=== PATIENT | female | born 1970 ===

== ENCOUNTER 2017-09-20 20:29 | Observation (INO) | payer OTHER ==
[2017-09-20 22:20] LABS: BASO # 0.1 K/uL (0.0-0.2); BASO % 0.4 % (0.0-2.0); EOS # 0.1 K/uL (0.0-0.7); EOS % 0.5 % (0.0-4.0); HEMOGLOBIN 13.7 g/dL (12.0-16.0); LYMPH # 2.5 K/uL (1.0-4.3); LYMPH % 19.8 % (20.0-40.0); MEAN CELL VOLUME 89.6 fl (81.0-99.0); MEAN CORPUSCULAR HEMOGLOBIN 30.5 pg (27.0-31.0); MEAN CORPUSCULAR HGB CONC 34.1 g/dL (33.0-37.0); MEAN PLATELET VOLUME 9.7 fl (7.2-11.7); MONO # 0.8 K/uL (0.0-0.8); MONO % 6.3 % (0.0-10.0); NEUT # 9.2 K/uL (1.8-7.0); NRBC % 0.1 % (0.0-0.0); RBC 4.49 Mil/uL (3.80-5.20); RED CELL DISTRIBUTION WIDTH 12.8 % (11.5-14.5); WHITE BLOOD COUNT 12.6 K/uL (4.8-10.8)
[2017-09-20] MEDS ORDERED: Iohexol 240 (50 ml) PO ONE (22:24)
[2017-09-20 22:40] LABS: ALB/GLOB RATIO 1.1 (1.0-2.1); ALBUMIN 3.8 g/dL (3.5-5.0); ALT/SGPT 33 U/L (9-52); AST/SGOT 17 U/L (14-36); BLOOD UREA NITROGEN 9 mg/dl (7-17); CALCIUM 8.7 mg/dL (8.4-10.2); GFR AFRICAN-AMERICAN > 60; GFR NON-AFRICAN AMERICAN > 60
[2017-09-20] MEDS ORDERED: Iohexol 240 (50 ml) ONE (23:01)
[2017-09-20] MEDS ORDERED: Morphine 4 MG/ML VIAL ONE (23:06)
[2017-09-21] MEDS ORDERED: Morphine 4 MG/ML VIAL IV ONE ×2 (00:11→03:48)
[2017-09-21] MEDS ORDERED: Iohexol 300 100 ML IJ ONE (00:28)
[2017-09-21] MEDS ORDERED: Sodium Chloride 0.9% 100 ML ONE (00:28)
--- NOTE | 2017-09-21 01:05 | CT ---
EXAM: CT Abdomen and Pelvis With Intravenous Contrast CLINICAL HISTORY: 47 years old, female; Pain; Abdominal pain; Generalized; Prior surgery; Surgery date: 6+ months; Surgery type: Appendectomy. ; Additional info: Diffuse abd pain TECHNIQUE: Axial computed tomography images of the abdomen and pelvis with intravenous contrast. All CT scans at this facility use one or more dose reduction techniques, viz.: automated exposure control; ma/kV adjustment per patient size (including targeted exams where dose is matched to indication; i.e. head); or iterative reconstruction technique. Coronal and sagittal reformatted images were created and reviewed. CONTRAST: 90 mL of [id number] administered intravenously. COMPARISON: No relevant prior studies available. FINDINGS: Lung bases: Minimal atelectasis/scarring. ABDOMEN: Liver: Unremarkable. No mass. Gallbladder and bile ducts: No calcified stones. No ductal dilation. Pancreas: No ductal dilation. No mass. Spleen: No splenomegaly. Adrenals: No mass. Kidneys and ureters: No mass. No hydronephrosis. Stomach and bowel: Scattered diverticula within colon. Moderate to severe mural thickening of distal transverse, descending colon. Mild stranding within adjacent fat. No obstruction. Appendix: Appendectomy. PELVIS: Bladder: Unremarkable. Reproductive: 2.0 x 1.5 x 1.9 cm peripherally enhancing hypodensity with crenulated margins within RIGHT ovary. ABDOMEN and PELVIS: Intraperitoneal space: Trace free fluid within pelvis. No free air. Bones/joints: Early degenerative changes of spine. No acute fracture. Soft tissues: Tiny umbilical hernia containing fat. Vasculature: Unremarkable. No aneurysm. Lymph nodes: No pathologically enlarged lymph nodes. IMPRESSION: 1. Colitis, nonspecific. Consider inflammatory, infectious, or ischemic etiologies. 2. Involuting or ruptured RIGHT ovarian follicle/cyst. 3. Incidental/non-acute findings are described above.
--- NOTE | 2017-09-21 01:11 | ED PDOC ---
HPI: Abdomen Time Seen by Provider: 09/20/17 20:35 Chief Complaint (Nursing): GI Problem Chief Complaint (Provider): GI problem History Per: Patient History/Exam Limitations: no limitations Onset/Duration Of Symptoms: Days (x 2) Current Symptoms Are (Timing): Still Present Quality Of Discomfort: "Pain" Additional Complaint(s): 47 year old female presents to the ED complaining of generalized abdominal pain for the last two days and 1 episode of blood stool last night. Patient denies fever, vomiting and diarrhea. PMD: none provided Past Medical History Reviewed: Historical Data, Nursing Documentation, Vital Signs Vital Signs: Last Vital Signs Temp 98.5 F 09/20/17 20:38 Pulse 77 09/20/17 20:38 Resp 16 09/20/17 20:38 BP 133/86 09/20/17 20:38 Pulse Ox 100 09/21/17 03:56 - Medical History PMH: No Chronic Diseases - Surgical History Surgical History: No Surg Hx - Family History Family History: States: Unknown Family Hx - Social History Current smoker - smoking cessation education provided: No Alcohol: None Drugs: Denies - Home Medications Home Medications: Ambulatory Orders Medication Instructions Recorded No Known Home Med 09/21/17 - Allergies Allergies/Adverse Reactions: Allergies Allergy/AdvReac Type Severity Reaction Status Date / Time No Known Allergies Allergy Verified 09/20/17 20:41 Review of Systems ROS Statement: Except As Marked, All Systems Reviewed And Found Negative Constitutional: Negative for: Fever Gastrointestinal: Positive for: Abdominal Pain, Hematochezia. Negative for: Vomiting, Diarrhea Physical Exam - Reviewed Nursing Documentation Reviewed: Yes Vital Signs Reviewed: Yes - Physical Exam Appears: Positive for: No Acute Distress Head Exam: Positive for: ATRAUMATIC, NORMOCEPHALIC Skin: Positive for: Normal Color, Warm, DRY Eye Exam: Positive for: EOMI, Normal appearance, PERRL Neck: Positive for: Normal, Painless ROM Cardiovascular/Chest: Positive for: Regular Rate, Rhythm. Negative for: Murmur Respiratory: Positive for: Normal Breath Sounds. Negative for: Respiratory Distress Gastrointestinal/Abdominal: Positive for: Normal Exam, Tenderness (diffuse) Back: Positive for: Normal Inspection Extremity: Positive for: Normal ROM. Negative for: Deformity Neurologic/Psych: Positive for: Alert, Oriented. Negative for: Motor/Sensory Deficits - Laboratory Results Result Diagrams: 09/20/17 22:15 09/20/17 22:15 - ECG O2 Sat by Pulse Oximetry: 100 (RA) Pulse Ox Interpretation: Normal Medical Decision Making Medical Decision Making: Time: 20:50 Initial Plan: abdominal pain rule out intraabdominal process, diverticutlitis, appendicitis --blood type and screen --Ct abd pelvis --CMP --Lipase --CBC with differentials --Morphine 2 mg IV --Omnipaque 240 50 ml PO --Pepcid 20 mg IVP --Zofran ODT 4 mg PO Time: 01:07 CT Abdomen Pelvis FINDINGS: Lung bases: Minimal atelectasis/scarring. ABDOMEN: Liver: Unremarkable. No mass. Gallbladder and bile ducts: No calcified stones. No ductal dilation. Pancreas: No ductal dilation. No mass. Spleen: No splenomegaly. Adrenals: No mass. Kidneys and ureters: No mass. No hydronephrosis. Stomach and bowel: Scattered diverticula within colon. Moderate to severe mural thickening of distal transverse, descending colon. Mild stranding within adjacent fat. No obstruction. Appendix: Appendectomy. PELVIS: Bladder: Unremarkable. Reproductive: 2.0 x 1.5 x 1.9 cm peripherally enhancing hypodensity with crenulated margins within RIGHT ovary. ABDOMEN and PELVIS: Intraperitoneal space: Trace free fluid within pelvis. No free air. Bones/joints: Early degenerative changes of spine. No acute fracture. Soft tissues: Tiny umbilical hernia containing fat. Vasculature: Unremarkable. No aneurysm. Lymph nodes: No pathologically enlarged lymph nodes. IMPRESSION: 1. Colitis, nonspecific. Consider inflammatory, infectious, or ischemic etiologies. 2. Involuting or ruptured RIGHT ovarian follicle/cyst. 3. Incidental/non-acute findings are described above. Radiologist called and said that colitis is very severe. Time: 02:02 --ABG Panel lactate normal Time: 03:52 --guaiac stool ordered --Upon reevaluation, patient still reports pain -cipro./flagyl --Will be admitted to med/surg to Dr. Boggs. Scribe Attestation: Documented by Ivanna Parks, acting as a scribe for Tanner Serrano MD Provider Scribe Attestation: All medical record entries made by the Scribe were at my direction and personally dictated by me. I have reviewed the chart and agree that the record accurately reflects my personal performance of the history, physical exam, medical decision making, and the department course for this patient. I have also personally directed, reviewed, and agree with the discharge instructions and disposition. Disposition - Clinical Impression Clinical Impression: Colitis - Patient ED Disposition Is Patient to be Admitted: Yes Counseled Patient/Family Regarding: Studies Performed, Diagnosis - Disposition Disposition Time: 03:00 Condition: STABLE Forms: [employer] (Eth[place]ian) - Pt Status Changed To: Hospital Disposition Of: Inpatient - Admit Certification Admit to Inpatient:: After my assessment, the patient will require hospitalization for at least two midnights. This is because of the severity of symptoms shown, intensity of services needed, and/or the medical risk in this patient being treated as an outpatient.
[2017-09-21 02:26] LABS: ABG ALLEN TEST YES; ARTERIAL BLOOD GAS HCO3 25.7 mmol/L (21-28); ARTERIAL BLOOD GAS O2 SAT 99.6 % (95-98); ARTERIAL BLOOD GAS PCO2 37 mm/Hg (35-45); ARTERIAL BLOOD GAS PH 7.44 (7.35-7.45); ARTERIAL BLOOD GAS PO2 99 mm/Hg (80-100); ARTERIAL BLOOD GAS TCO2 26.2 mmol/L (22-28)
[2017-09-21] MEDS ORDERED: Sodium Chloride 0.9% 1,000 ML IV STA (03:51)
[2017-09-21] MEDS ORDERED: Morphine 4 MG/ML VIAL ONE (03:56)
[2017-09-21] MEDS ORDERED: Oxycodone/Acetaminophen 5/325 mg Tab PO PRN (03:57)
[2017-09-21] MEDS ORDERED: Morphine 4 MG/ML VIAL IVP PRN (03:57)
--- NOTE | 2017-09-21 04:05 | CP.PCM.HP ---
History of Present Illness - History of Present Illness History of Present Illness: CC: abd pain, blood in stool HPI: This is a 47 y/o female with no chronic medical conditions who presents with abd pain and several episodes of blood in stool. States abd pain started about 2 days ago, but is not associated with n/v. Denies f/c. Denies dysuria. Patient without any unusual food ingestion, no unusual travel or other exposure. Never had symptoms like this in the past. ROS: 14 systems reviewed, negative other than HPI MHx/SHx: Appendectomy in the distant past Allergies: None Medications: None Family Hx: None Social Hx: Lives with family, no tobacco, no significant EtOH Present on Admission - Present on Admission Any Indicators Present on Admission: No Past Patient History - Past Social History Smoking Status: Never Smoked - PSYCHIATRIC Hx Substance Use: No - SURGICAL HISTORY Hx Surgeries: No Meds Allergies/Adverse Reactions: Allergies Allergy/AdvReac Type Severity Reaction Status Date / Time No Known Allergies Allergy Verified 09/20/17 20:41 Physical Exam - Constitutional Appears: No Acute Distress - Head Exam Head Exam: ATRAUMATIC, NORMOCEPHALIC - Eye Exam Eye Exam: EOMI, PERRL - ENT Exam ENT Exam: Mucous Membranes Moist - Neck Exam Neck exam: Positive for: Full Rom - Respiratory Exam Respiratory Exam: Clear to Auscultation Bilateral, NORMAL BREATHING PATTERN - Cardiovascular Exam Cardiovascular Exam: REGULAR RHYTHM, +S1, +S2 - GI/Abdominal Exam GI & Abdominal Exam: Normal Bowel Sounds, Soft, Tenderness - Extremities Exam Extremities exam: Positive for: full ROM, normal inspection - Neurological Exam Neurological exam: Alert, CN II-XII Intact, Oriented x3 - Psychiatric Exam Psychiatric exam: Normal Affect, Normal Mood - Skin Skin Exam: Dry, Warm Results - Vital Signs Recent Vital Signs: Last Vital Signs Temp 98.5 F 09/20/17 20:38 Pulse 77 09/20/17 20:38 Resp 16 09/20/17 20:38 BP 133/86 09/20/17 20:38 Pulse Ox 100 09/21/17 03:56 - Labs Result Diagrams: 09/20/17 22:15 09/20/17 22:15 Labs: Laboratory Results - last 24 hr 09/20/17 09/20/17 09/20/17 00:30 22:15 22:15 WBC 12.6 H RBC 4.49 Hgb 13.7 Hct 40.2 MCV 89.6 MCH 30.5 MCHC 34.1 RDW 12.8 Plt Count 213 MPV 9.7 Neut % (Auto) 73.0 Lymph % (Auto) 19.8 L Henry % (Auto) 6.3 Eos % (Auto) 0.5 Baso % (Auto) 0.4 Neut # (Auto) 9.2 H Lymph # (Auto) 2.5 Henry # (Auto) 0.8 Eos # (Auto) 0.1 Baso # (Auto) 0.1 pCO2 pO2 HCO3 ABG pH ABG Total CO2 ABG O2 Saturation ABG Base Excess Reece Test ABG Potassium A-a O2 Difference Glucose Lactate FiO2 Sodium 141 Potassium 3.8 Chloride 104 Carbon Dioxide 25 Anion Gap 16 BUN 9 Creatinine 0.5 L Est GFR ( Amer) > 60 Est GFR (Non-Af Amer) > 60 Random Glucose 88 Calcium 8.7 Total Bilirubin 0.7 AST 17 ALT 33 Alkaline Phosphatase 55 Total Protein 7.1 Albumin 3.8 Globulin 3.3 Albumin/Globulin Ratio 1.1 Lipase Arterial Blood Potassium Blood Type O POSITIVE Antibody Screen Negative BBK History Checked No verified bt 09/20/17 09/21/17 22:15 02:02 WBC RBC Hgb Hct MCV MCH MCHC RDW Plt Count MPV Neut % (Auto) Lymph % (Auto) Henry % (Auto) Eos % (Auto) Baso % (Auto) Neut # (Auto) Lymph # (Auto) Henry # (Auto) Eos # (Auto) Baso # (Auto) pCO2 37 pO2 99 HCO3 25.7 ABG pH 7.44 ABG Total CO2 26.2 ABG O2 Saturation 99.6 H ABG Base Excess 1.1 Reece Test Yes ABG Potassium 3.6 A-a O2 Difference 4.0 Glucose 95 Lactate 0.4 L FiO2 21.0 Sodium 135.0 Potassium Chloride 107.0 Carbon Dioxide Anion Gap BUN Creatinine Est GFR ( Amer) Est GFR (Non-Af Amer) Random Glucose Calcium Total Bilirubin AST ALT Alkaline Phosphatase Total Protein Albumin Globulin Albumin/Globulin Ratio Lipase 38 Arterial Blood Potassium 3.6 Blood Type Antibody Screen BBK History Checked - Imaging and Cardiology CT scan - abdomen Status: Image reviewed by me (extensive colitis), Report reviewed by me Assessment & Plan (1) Colitis Assessment and Plan: 47 y/o female with colitis + blood in stool. -NPO and IVF overnight -Start Cipro/Flagyl -f/u stool cultures/studies -Pain/nausea control -SCDs only for DVT PPx Status: Acute (2) DVT prophylaxis Status: Acute
[2017-09-21] MEDS: metroNIDAZOLE 500mg/100ml NS 100 ML IVPB SCH ×3 (04:08→16:43)
[2017-09-21] MEDS ORDERED: metroNIDAZOLE 500mg/100ml NS 100 ML IVPB ONE (04:08)
[2017-09-21] MEDS: Ciprofloxacin 400mg/200ml D5W 400 MG/200 ML BAG IVPB SCH ×2 (05:13→22:00)
[2017-09-21] MEDS ORDERED: Ciprofloxacin 400mg/200ml D5W 400 MG/200 ML BAG IVPB ONE (05:13)
[2017-09-21 12:04] LABS: HEMOGLOBIN 12.9 g/dL (12.0-16.0); MEAN CELL VOLUME 88.1 fl (81.0-99.0); MEAN CORPUSCULAR HEMOGLOBIN 31.3 pg (27.0-31.0); MEAN CORPUSCULAR HGB CONC 35.6 g/dL (33.0-37.0); RBC 4.13 Mil/uL (3.80-5.20); RED CELL DISTRIBUTION WIDTH 12.3 % (11.5-14.5); WHITE BLOOD COUNT 10.1 K/uL (4.8-10.8)
[2017-09-21 12:23] LABS: BLOOD UREA NITROGEN 6 mg/dl (7-17); CALCIUM 7.9 mg/dL (8.4-10.2); GFR AFRICAN-AMERICAN > 60; GFR NON-AFRICAN AMERICAN > 60
[2017-09-21] MEDS: Lactated Ringer's 1,000 ML IV SCH ×3 (12:32→22:11)
[2017-09-21] MEDS ORDERED: Pneumococcal 23-Valent Vaccine IM ONE (17:00)
[2017-09-21] MEDS ORDERED: Influenza Vaccine 18yr & older 0.5 ML/45 MCG SYR IM ONE (17:00)
[2017-09-22] MEDS: metroNIDAZOLE 500mg/100ml NS 100 ML IVPB SCH ×2 (01:32→10:52)
[2017-09-22] MEDS: Ciprofloxacin 400mg/200ml D5W 400 MG/200 ML BAG IVPB SCH (12:01)
--- NOTE | 2017-09-22 15:02 | CP.PCM.DIS ---
Provider - Provider Date of Admission: 09/21/17 03:52 Attending physician: Sulma Boggs MD Time Spent in preparation of Discharge (in minutes): 35 Diagnosis - Discharge Diagnosis (1) Colitis Status: Acute (2) DVT prophylaxis Status: Acute Hospital Course - Lab Results Lab Results: Most Recent Lab Values WBC 10.1 K/uL (4.8-10.8) 09/21/17 11:30 RBC 4.13 Mil/uL (3.80-5.20) 09/21/17 11:30 Hgb 12.9 g/dL (12.0-16.0) 09/21/17 11:30 Hct 36.4 % (34.0-47.0) 09/21/17 11:30 MCV 88.1 fl (81.0-99.0) 09/21/17 11:30 MCH 31.3 pg (27.0-31.0) H 09/21/17 11:30 MCHC 35.6 g/dL (33.0-37.0) 09/21/17 11:30 RDW 12.3 % (11.5-14.5) 09/21/17 11:30 Plt Count 207 K/uL (130-400) 09/21/17 11:30 MPV 9.7 fl (7.2-11.7) 09/20/17 22:15 Neut % (Auto) 73.0 % (50.0-75.0) 09/20/17 22:15 Lymph % (Auto) 19.8 % (20.0-40.0) L 09/20/17 22:15 Gonzales % (Auto) 6.3 % (0.0-10.0) 09/20/17 22:15 Eos % (Auto) 0.5 % (0.0-4.0) 09/20/17 22:15 Baso % (Auto) 0.4 % (0.0-2.0) 09/20/17 22:15 Neut # (Auto) 9.2 K/uL (1.8-7.0) H 09/20/17 22:15 Lymph # (Auto) 2.5 K/uL (1.0-4.3) 09/20/17 22:15 Gonzales # (Auto) 0.8 K/uL (0.0-0.8) 09/20/17 22:15 Eos # (Auto) 0.1 K/uL (0.0-0.7) 09/20/17 22:15 Baso # (Auto) 0.1 K/uL (0.0-0.2) 09/20/17 22:15 pCO2 37 mm/Hg (35-45) 09/21/17 02:02 pO2 99 mm/Hg (80-100) 09/21/17 02:02 HCO3 25.7 mmol/L (21-28) 09/21/17 02:02 ABG pH 7.44 (7.35-7.45) 09/21/17 02:02 ABG Total CO2 26.2 mmol/L (22-28) 09/21/17 02:02 ABG O2 Saturation 99.6 % (95-98) H 09/21/17 02:02 ABG Base Excess 1.1 mmol/L (-2.0-3.0) 09/21/17 02:02 Reece Test Yes 09/21/17 02:02 ABG Potassium 3.6 mmol/L (3.6-5.2) 09/21/17 02:02 A-a O2 Difference 4.0 mm/Hg 09/21/17 02:02 Sodium 135.0 mmol/L (132-148) 09/21/17 02:02 Chloride 107.0 mmol/L (98-107) 09/21/17 02:02 Glucose 95 mg/dL (65-105) 09/21/17 02:02 Lactate 0.4 mmol/L (0.7-2.1) L 09/21/17 02:02 FiO2 21.0 % 09/21/17 02:02 Sodium 143 mmol/l (132-148) 09/21/17 11:30 Potassium 3.9 MMOL/L (3.6-5.0) 09/21/17 11:30 Chloride 107 mmol/L (98-107) 09/21/17 11:30 Carbon Dioxide 25 mmol/L (22-30) 09/21/17 11:30 Anion Gap 15 (10-20) 09/21/17 11:30 BUN 6 mg/dl (7-17) L 09/21/17 11:30 Creatinine 0.5 mg/dl (0.7-1.2) L 09/21/17 11:30 Est GFR ( Amer) > 60 09/21/17 11:30 Est GFR (Non-Af Amer) > 60 09/21/17 11:30 Random Glucose 88 mg/dL (65-105) 09/21/17 11:30 Calcium 7.9 mg/dL (8.4-10.2) L 09/21/17 11:30 Total Bilirubin 0.7 mg/dl (0.2-1.3) 09/20/17 22:15 AST 17 U/L (14-36) 09/20/17 22:15 ALT 33 U/L (9-52) 09/20/17 22:15 Alkaline Phosphatase 55 U/L (38-126) 09/20/17 22:15 Total Protein 7.1 G/DL (6.3-8.2) 09/20/17 22:15 Albumin 3.8 g/dL (3.5-5.0) 09/20/17 22:15 Globulin 3.3 gm/dL (2.2-3.9) 09/20/17 22:15 Albumin/Globulin Ratio 1.1 (1.0-2.1) 09/20/17 22:15 Lipase 38 U/L (23-300) 09/20/17 22:15 Arterial Blood Potassium 3.6 mmol/L (3.6-5.2) 09/21/17 02:02 Blood Type O POSITIVE 09/20/17 00:30 Antibody Screen Negative 09/20/17 00:30 BBK History Checked No verified bt 09/20/17 00:30 - Hospital Course Hospital Course: 47 y/o female with no chronic medical conditions who presents with abdominal pain and several episodes blood tinge diarrhea. She had no fever, no N/V. Ct of abdomen showed Colitis changes. Pt was admitted to Med Surg and kept NPO. She was started on IV fluids and IV Cipro and Flagyl. Stool work up ordered. Since admission , patient's abdominal pain resolved, diarrhea resolved, no rectal bleeding noted. She was unable to give sny specimen for Stool work up. PO diet gradually resumed and she tolerated Regula diet without recurrence of pain nor diarrhea. Will d/c pt home and any further GI work up will be done as outpt . Discharge Exam - Head Exam Head Exam: ATRAUMATIC, NORMAL INSPECTION, NORMOCEPHALIC - Eye Exam Eye Exam: EOMI, Normal appearance, PERRL Pupil Exam: NORMAL ACCOMODATION - ENT Exam ENT Exam: Mucous Membranes Moist, Normal External Ear Exam - Neck Exam Neck exam: Full Rom - Respiratory Exam Respiratory Exam: NORMAL BREATHING PATTERN. absent: Respiratory Distress - Cardiovascular Exam Cardiovascular Exam: REGULAR RHYTHM, +S1, +S2 - GI/Abdominal Exam GI & Abdominal Exam: Normal Bowel Sounds, Soft. absent: Tenderness - Extremities Exam Extremities exam: full ROM, normal capillary refill, normal inspection, pedal pulses present - Back Exam Back exam: FULL ROM. absent: CVA tenderness (L), CVA tenderness (R) - Neurological Exam Neurological exam: CN II-XII Intact, Normal Gait, Oriented x3, Reflexes Normal - Psychiatric Exam Psychiatric exam: Normal Affect, Normal Mood - Skin Skin Exam: Dry, Normal Color, Warm Discharge Plan - Discharge Medications Prescriptions: Ciprofloxacin HCl [Cipro] 500 mg PO BID #10 tablet Metronidazole [Flagyl] 500 mg PO TID #15 tablet - Follow Up Plan Condition: GOOD Instructions: Inflammatory Bowel Disease Additional Instructions: September 26 at 2:20pm at GI clinic here in hospital- [address] [phone] Referrals: [facility] [place] [Outside]
[2017-09-22 16:13] VITALS: BP 97/62; PULSE 72; RESP 19; TEMP 98.3; O2SAT 98
== END 2017-09-22 16:41 | disposition home or self-care (01) ==
LOC: H.ER 20:29 → H.ERHOLD 09-21 03:52 → INTOOBSV 09-21 03:52 → H.MEDSURG1 09-21 06:11
PROVIDERS: ADMIT Internal Medicine; ATTEND Internal Medicine
DX: K52.9 Noninfective gastroenteritis and colitis, unspecified (principal)
CPT/HCPCS: 36415; 74177; 80048; 80053; 81025; 82803; 83690; 85025; 85027; 86850; 86900; 90471; 96365; 96375; 99283; G0378; J0744; J2270; J7040; J7120; Q2035; Q9966; Q9967